=== PATIENT | female | born 1940 | race Caucasian/White ===

== ENCOUNTER 2017-11-15 07:00 | Day surgery (SDC) | payer OTHER ==
[~2017-11-15] VITALS: Ht 160 cm; Wt 67.1 kg
[~2017-11-15 07:00] MED LIST: FENOFIBRATE145 MG PO; MECLIZINE HCL12.5 MG PO; NORVASC5 MG PO; PROSOM PO; RELAFEN PO; SYNTHROID100 MCG PO
[2017-11-15] MEDS ORDERED: ESTAZOLAM2 MG PO (09:32)
[2017-11-15] MEDS ORDERED: NABUMETONE750 MG PO (09:32)
== END 2017-11-16 09:22 | disposition home or self-care (01) ==
LOC: CIR.AMB 07:00 → EDSTATUS 09:15 → OB/GYN 09:15 → O/R 14:05 → CIR.AMB 11-16 09:22 → OB/GYN 11-16 11:05 → O/R 11-16 11:05
DX: N81.5 Vaginal enterocele (principal); I10 Essential (primary) hypertension